=== PATIENT | male | born 1955 | race Caucasian/White ===

== ENCOUNTER 2025-02-05 23:06 | Emergency (ER) | payer MEDICARE, OTHER, SELFPAY ==
[2025-02-05 23:12] VITALS: BP 110/69
--- NOTE | 2025-02-05 23:46 | ED.GENMED ---
History of Present Illness
General
Chief Complaint: Bowel Problem
Source: patient
Exam Limitations: none
Time Seen by Provider: 02/05/25 23:30
History of Present Illness
History of Present Illness:
69-year-old male visiting from [place] presents with 1 weeks worth of lack of bowel movement. He is on hydromorphone at home secondary to pain from radiation treatment from throat cancer. He has been using MiraLAX for 4 days without relief. He
denies any blood or any leaking. He denies abdominal pain or vomiting. No fever. No other complaints at this time
Phy Exam
Physical Exam
Physical Exam:
General: Uncomfortable appearing male leaning to the left when he sits
HEENT: Normocephalic atraumatic
Heart: Regular rate and rhythm
Lungs: Clear no wheeze
Abdomen is soft nontender nondistended no guarding or rebound
Rectal exam: Several hard pieces of stool within the rectum. No hemorrhoids noted. Attempted manual disimpaction unsuccessful as the stool keeps moving aside.
Extremities: No cyanosis or edema
Course
Orders/Labs/Results
Orders:
Orders
02/05/25 23:46
Enema- Treatment ONCE
Type: Milk of Molasses
02/06/25 01:51
Magnesium Citrate [Citroma] 300 ml PO ONCE ONE
Vital Signs
Initial and Last Documented VS:
Initial Vital Signs
Temp Pulse Resp BP Pulse Ox
98.1 F 68 16 110/69 98
02/05/25 23:12 02/05/25 23:12 02/05/25 23:12 02/05/25 23:12 02/05/25 23:12
Last Documented Vital Signs
Temp Pulse Resp BP Pulse Ox
98.1 F 68 16 110/69 98
02/05/25 23:12 02/05/25 23:12 02/05/25 23:12 02/05/25 23:12 02/05/25 23:12
MDM/Problems Addressed
Differential Diagnosis Includes:
Constipation. Abdominal exam benign do not suspect obstruction or perforation. Attempted that disimpaction however unsuccessful will try enema.
*Critical Care Note
Total Time (30-74mins, 75-104mins- exclusive of procedures): Not Applicable
Update Note
Update Note:
Patient with large bowel movement after enema and manual disimpaction by nursing staff. Feeling much better. No indication for any further intervention. Will send home on magnesium citrate. Advised to increase his MiraLAX intake and fiber.
Stable for discharge
ED Attending Note
-
Portions of this chart may have been created with voice recognition software.� Occasional wrong word or��sound alike� substitutions may have occurred due to the inherent limitations of voice recognition software.
Discharge Plan
Departure
Patient Disposition: Home (Routine Discharge)
Date of Disposition: 02/06/25
Time of Disposition: 01:52
Patient with high blood pressure during this ER visit?: No
Discharge Problem:
Constipation
Instructions: Constipation, Adult (DC)
Referrals:
NONE,* [Family Provider] -
Activity Restrictions/Additional Instructions:
Use magnesium citrate as directed. Increase your MiraLAX use to at least 2 times a day. Drink plenty of fluids. Increase fiber. Return here for increasing pain fever vomiting or other concerning findings. Follow-up with your doctor other
Interventions
Interventions:
*Risk Screen - Suicide Last Done: 02/05/25 23:12
*General Assessment Last Done: 02/06/25 01:41
*Neglect/Abuse Screening Last Done: 02/06/25 01:41
*ED- Fall Risk Assessment Last Done: 02/06/25 01:41
*ED COVID-19 Vaccine History Last Done: 02/06/25 01:41
HC-Mafoxz-Lknlrqpsre Assessment Last Done: 02/06/25 00:39
Discharge Date and Time
Print Language: SAO TOMEAN
[2025-02-06 01:41] VITALS: BMI 27.6
[2025-02-06] MEDS: CITROMA 300 ML PO (02:09)
[2025-02-06 02:23] VITALS: BP 117/72
== END 2025-02-06 02:33 | disposition home or self-care (01) ==
LOC: EMR 23:06
PROVIDERS: EMERGENCY PHYSICIAN Emergency Medicine
DX: K59.00 Constipation, unspecified (principal)
CPT/HCPCS: 99283